=== PATIENT | male | born 1985 | race Caucasian/White ===

== ENCOUNTER 2019-10-29 22:24 | Observation (INO) | payer OTHER, SELFPAY ==
--- NOTE | ~2019-10-29 | XR_ITS ---
EXAMINATION: XR chest 2V DATE: 10/29/2019 22:53 INDICATION: Left-sided chest pain TECHNIQUE: PA and lateral views of the chest are obtained. COMPARISON: 04/16/2018 FINDINGS: The lungs are free of acute opacities. There is no pleural effusion or pneumothorax. The ca rdiomediastinal silhouette is normal. The visualized bones and soft tissues are unremarkable. IMPRESSION: 1. No acute cardiopulmonary abnormality. Reviewed, dictated and finalized at location A. ARCH PHYSICIAN
[2019-10-29 22:26] VITALS: BP 153/88; PULSE 83; RESP 20; TEMP 36.7; O2SAT 99
--- NOTE | 2019-10-29 22:30 | ECG_ITS ---
Measurements Intervals [place] Rate: 81 P: 21 NE: 147 QRS: 27 QRSD: 114 T: 18 QT: 353 QTc: 411 Interpretive Statements SINUS RHYTHM INTRAVENTRICULAR CONDUCTION DELAY BASELINE ARTIFACT- I, II, III, AVF, V1-V6 BORDERLINE ECG Electronically Signed On 10-30-2019 6:51:16 AUTO BODY MECHANIC APPRENTICE by Philip Harris D.O.
--- NOTE | 2019-10-29 22:30 | ED.CHESTPAIN ---
HPI - Chest Pain General Chief Complaint: Chest Pain Stated Complaint: chest tightness Time Seen by Provider: 10/29/19 22:28 Source: patient and RN notes reviewed Mode of arrival: ambulatory Limitations: no limitations History of Present Illness HPI narrative: Pt is a 34 y/o male who presents to the ED with c/o intermittent lt sided chest pain starting several days ago. He notes that he has had roughly 3-4 episodes of pain per day for the past several days, and states that each episode lasts for several hours at a time. Pt currently denies any SOB, nausea, vomiting, or ABD pain. He states that he has no significant cardiac PMHx. MD complaint: chest pain Onset (ago): day(s) (several) Timing of current episode: episodic Pain location: parasternal (lt parasternal region) Quality: tightness Associated symptoms: other (none) Related Data Home Medications Medication Instructions Recorded Confirmed No Home Medications 10/29/19 10/29/19 Allergies Allergy/AdvReac Type Severity Reaction Status Date / Time No Known Allergies Allergy Verified 10/29/19 22:31 Review of Systems Review of Systems: All systems reviewed & are unremarkable except as noted in HPI and below Cardiovascular: Cardiovascular: Reports chest pain (lt parasternal chest tightness) Respiratory: Respiratory: Denies dyspnea Gastrointestinal: Gastrointestinal: Denies abdominal pain, Denies nausea and Denies vomiting PMFSH Past Medical History Medical History Healthy adult male Surgical History Surgical History No significant past surgical history Social History Social History Smoking status: Never smoker Gender identity (if verbalized by the patient): Male Exam Narrative: Exam Narrative: APPEARANCE: No acute distress, nontoxic, resting in bed EYES: EOMI HEENT: Normocephalic, atraumatic, OMM RESPIRATORY: No respiratory distress Clear to auscultation bilaterally with no rhonchi wheezing or rales. CARDIOVASCULAR: Regular rate and rhythm without murmurs rubs or gallops. ABDOMINAL: Soft, nontender, nondistended, no rebound or guarding MUSCULOSKELETAl: Moves all extremities. No clubbing, cyanosis or edema. NEURO: Awake and alert. Following commands, speech normal, no focal deficits SKIN:: Warm, dry. No rashes lesions or abrasions PSYCHIATRIC: Normal affect/mood, Course Course Emergency Course: Patient notes a few episodes were minimal suggest pain on ED. No pain at this time with intermittent episodes will admit to [facility] Discussed with patient and family results of workup and diagnosis. Discussed need for admission. Patient and family understand and agree to current treatment plan Consultations Consultation #1: Discussed case with Program Research Specialist, Dr. Vieyra. Agrees with admission to [facility]. Date: 10/30/19 Time: 02: Vital Signs Vital signs: Vital Signs Temperature 98.1 F 10/29/19 22:26 Pulse Rate 83 10/29/19 22:26 Respiratory Rate 10/29/19 22:26 Blood Pressure 153/88 H 10/29/19 22:26 Pulse Oximetry 99 10/29/19 22:26 Temperature 98.1 F 10/29/19 22:26 Pulse Rate 52 L 10/30/19 02:26 Respiratory Rate 10/30/19 02:26 Blood Pressure 130/85 10/30/19 02:26 Pulse Oximetry 98 10/30/19 02:26 MDM - Chest Pain Lab Data Result diagrams: 10/29/19 22:33 10/29/19 22:33 Labs: Lab Results 10/29/19 10/29/19 10/29/19 Range/Units 22:33 22:33 22:33 WBC 8.9 (4.5-10.0) K/mm3 RBC 5.50 (4.6-6.20) M/mm3 Hgb 16.4 (14.0-18.0) g/dL Hct 48.3 (42.0-52.0) % MCV 87.8 (80-100) fl MCH 29.8 (26-34) pg MCHC 34.0 (32-36) g/dl RDW 12.1 (11.5-14.5) % Plt Count 187 (150-375) k/mm3 MPV 10.2 (7.4-10.4) fl Immature Gran % (Auto) 0.2 (0-0.5) % Neut % (Auto) 41.8 L (45.5-73.1)
[2019-10-29] MEDS: KETOROLAC 30 MG/ML VIAL (*BKC) IV PUSH (22:36)
[2019-10-29] MEDS: ASPIRIN 81 MG CHEWABLE TABLET 324 MG PO (22:36)
[2019-10-29 22:39] LABS: Basophils Absolute Auto 0.1 K/mm3 (0.0-0.1); Basophils Percent Auto 0.8 % (0.2-1.2); Eosinophils Absolute Auto 0.3 K/mm3 (0-0.3); Eosinophils Percent Auto 3.5 % (0-4.4); Hematocrit 48.3 % (42.0-52.0); Hemoglobin 16.4 g/dL (14.0-18.0); Immature Granulocyte Absolute 0.02 K/mm3 (0.00-0.031); Immature Granulocyte Percent A 0.2 % (0-0.5); Lymphocytes Percent Auto 44.1 % (18.3-44.2); Mean Corpuscular Hemoglobin 29.8 pg (26-34); Mean Corpuscular Volume 87.8 fl (80-100); Mean Platelet Volume 10.2 fl (7.4-10.4); Monocytes Absolute Auto 0.9 K/mm3 (0.1-0.6); Monocytes Percent Auto 9.6 % (2.6-8.5); Neutrophils Absolute Auto 3.7 K/mm3 (1.3-6.7); Neutrophils Percent Auto 41.8 % (45.5-73.1); Platelet Count Result 187 k/mm3 (150-375); Red Cell Distribution Width 12.1 % (11.5-14.5); White Blood Count 8.9 K/mm3 (4.5-10.0)
[2019-10-29 22:49] LABS: INR 0.9; Prothrombin Time 11.9 Seconds (11.1-14.7)
[2019-10-29 22:50] LABS: Blood Urea Nitrogen 14 mg/dL (9-20); Calcium 10.2 mg/dL (8.4-10.2); Carbon Dioxide 28 mmol/L (22-30); Chloride 97 mmol/L (98-107); Estimated Glomerular Filt Rate > 60; Glucose 91 mg/dL (75-110); Partial Thromboplastin Time 29.4 SECONDS (22.3-36.8); Potassium 3.7 mmol/L (3.4-5.0); Sodium 136 mmol/L (137-145)
[2019-10-29 23:02] LABS: Troponin I < 0.012 ng/mL (0.000-0.034)
[2019-10-29 23:34] VITALS: BP 126/72; PULSE 55; RESP 20; O2SAT 94
[2019-10-30] VITALS (9 sets, daily range): BP systolic 111–142; BP diastolic 67–87; PULSE 49–64; RESP 16–20; TEMP 36.3–36.6; O2SAT 95–100; BMI 30.1
--- NOTE | 2019-10-30 | EST_ITS ---
Patient Info Name: Kevon Santiago Age: 34 years : 1985 Gender: Male Ht: 76 in Wt: 250 lbs BSA: 2.49 m2 HR: 51 bpm BP: 111 / 71 mmHg Technical Quality: Good Exam Date: 10/30/2019 8:08 AM Exam Location: [facility] Patient Status: Outpatient Admit Date: 10/30/2019 Staff Ordering Physician: Albert Vieyra MD Account Assistant: Kimberly Vuong RDCS Attending Provider: dr nathan Exercise Technologist: Antoinette Ramey RDCS Exercise Physician: Karson Nathan MD Exam Type: CA stress echo Study Info Indications R07.89 - Other chest pain Treadmill exercise stress echocardiogram is performed. Summary 1. Negative stress echocardiogram for ischemia by wall motion analysis. Stress Echo Findings Left Ventricle Normal left venticular systolic function with no regional wall motion abnormalities noted at rest. Left ventricular systolic function is normal with an estimated ejection fraction of 55 % at rest. Left Ventricle Left ventricular Empty are normal with no regional wall motion abnormalities with an estimated ejection fraction of 55-60%. Right Ventricle Right ventricle Empty are normal. Ventricles Name Value Normal LV Fractional Shortening/Ejection Fraction 2D/MM Visually Estimated EF 55 % 52-72 Protocol: Shakeel Stress ECG Details Stage: REST Duration (min): 0 min : 46 sec Speed (mph): 0.0 Grade (%): 0 HR (bpm): 51 SBP (mmHg): 111 DBP (mmHg): 71 METS: --- Stage: REST Duration (min): 8 min : 37 sec Speed (mph): 0.0 Grade (%): 0 HR (bpm): 71 SBP (mmHg): 111 DBP (mmHg): 71 METS: --- Stage: STAGE 1 Duration (min): 1 min : 0 sec Speed (mph): 1.7 Grade (%): 10 HR (bpm): 99 SBP (mmHg): 111 DBP (mmHg): 71 METS: --- Stage: STAGE 1 Duration (min): 2 min : 0 sec Speed (mph): 1.7 Grade (%): 10 HR (bpm): 105 SBP (mmHg): 111 DBP (mmHg): 71 METS: --- Stage: STAGE 1 Duration (min): 3 min : 0 sec Speed (mph): 1.7 Grade (%): 10 HR (bpm): 104 SBP (mmHg): 160 DBP (mmHg): 80 METS: --- Stage: STAGE 2 Duration (min): 1 min : 0 sec Speed (mph): 2.5 Grade (%): 12 HR (bpm): 124 SBP (mmHg): 160 DBP (mmHg): 80 METS: --- Stage: STAGE 2 Duration (min): 2 min : 0 sec Speed (mph): 2.5 Grade (%): 12 HR (bpm): 129 SBP (mmHg): 165 DBP (mmHg): 77 METS: --- Stage: STAGE 2 Duration (min): 3 min : 0 sec Speed (mph): 2.5 Grade (%): 12 HR (bpm): 130 SBP (mmHg): 165 DBP (mmHg): 77 METS: --- Stage: STAGE 3 Duration (min): 1 min : 0 sec Speed (mph): 3.4 Grade (%): 14 HR (bpm): 155 SBP (mmHg): 174 DBP (mmHg): 74 METS: --- Stage: CHARLA
[2019-10-30 02:03] LABS: Troponin I < 0.012 ng/mL (0.000-0.034)
[2019-10-30 02:39] LABS: D Dimer 0.32 ug/mL (<0.48)
[2019-10-30 03:02] LABS: Cholesterol 207 mg/dL (0-200); HDL Direct 32 mg/dL; Triglycerides 443 mg/dL (<150)
[2019-10-30 03:13] LABS: LDL Cholesterol Direct 108 mg/dL
[2019-10-30 05:28] LABS: Troponin I < 0.012 ng/mL (0.000-0.034)
--- NOTE | 2019-10-30 06:06 | ADMIMU ---
This patient, Kevon Santiago, was admitted to IMU status, and placed in IMU Room 209-01. Patient/family oriented to hospital policies and general routines including ID bracelet, bed and alarms, visiting hours, pain management, procedures, bathroom and other care routines, personal items, smoking policy, room service/diet, and visiting hours. Valuables list has been completed. Information on how to activate the Rapid Response Team has been discussed. Patient/Family are encouraged to report perceived risks to care and to ask questions if they do not understand what they are told or what they should do.
--- NOTE | 2019-10-30 07:15 | PC.NURSE ---
RECEIVED TRANSFER OF GLASS TUBE BENDER STATUS PT, CAMRYN GLOVER FROM IMU 209 TO GLASS TUBE BENDER 6 VIA WC AT THIS TIME. AWAKE AND ALERT. REPORTS INTERMITTANT CHEST PRESSURE TO LEFT UPPER CHEST WITHOUT RADIATION. DENIES SOB, NAUSEA OR DIAPHORESIS AT THIS TIME. VSS. , ABBY, AT SIDE. MONITOR SB TO SR, 40'S TO 70'S NOTED. STRESS ECHO ORDERED FOR 0800. PT. REPORTS HAS BEEN NPO AFTER MIDNIGHT. ORIENTED TO NEW ROOM, PLAN. WILL MONITOR.
--- NOTE | 2019-10-30 07:57 | PC.NURSE ---
DOWN VIA WC TO STRESS ECHO.
--- NOTE | 2019-10-30 08:40 | PC.NURSE ---
RETURNED TO SMALL ANIMAL VETERINARIAN 6 VIA S/P STRESS ECHO.
--- NOTE | 2019-10-30 08:56 | PC.NURSE ---
DR. TRUONG HERE. LEFT VERBAL ORDERS FOR DISCHARGE HOME. PT. NOTIFIED.
--- NOTE | 2019-10-30 09:36 | PM.SD ---
Same Day Admit/Disch: HPI History of Present Illness Chief complaint: chest pain Narrative: Kevon Santiago is a 34 year old male with no significant past medical history who presented to [facility] last night complaining for chest discomfort. According to patient he experienced left-sided chest discomfort for last few days on and off. According to the ER note patient reported that he has episodes of pain are lasting several hours. He denies any shortness of breath palpitation dizziness or syncopal episode. Patient never had any cardiac problems no previous cardiac evaluation. He claims that his blood pressure is well controlled. Patient was admitted to telemetry floor for overnight observation. Patient was seen and examined, chart was reviewed, case was discussed with patient's nurse. [facility] Past Medical History Medical History Healthy adult male Surgical History Surgical History No significant past surgical history Family History Family History (Updated 10/30/19 @ 05:46 by Daly Sanchez RN) Mother ADHD Anxiety Hypertension SIOBHAN (obstructive sleep apnea) Social History Social History Smoking status: Never smoker Alcohol intake: current Drinks per week: 15 Substance use: never Substance use type: does not use Gender identity (if verbalized by the patient): Male Agree to blood products: Yes Same Day Admit/Disch: Med Pre-admit Medications Home Medications Medication Instructions Recorded Confirmed Type No Home Medications 10/29/19 10/29/19 History Exam Const: General: alert and awake; No acute distress HENMT: Head: normal to inspection and atraumatic Ears: hearing grossly normal bilaterally Face and sinus: normal facial exam Eyes: General: appearance normal, both eyes and all related structures Pupils: Equal, round and reactive pupils present EOM: EOMs intact bilaterally Neck: Neck: normal visual inspection and no JVD Chest: Chest palpation & inspection: normal inspection of the chest Resp: Effort & Inspection: normal respiratory effort and no respiratory distress Auscultation: clear to auscultation bilaterally Cardio: Jugular venous distension: no JVD Rate: regular rate Heart sounds: S1 normal heart sound present, S2 normal heart sound present and no murmurs GI: Inspection: normal to inspection GI Palp: Yes Soft to palpation, No Tenderness to palpation present (GI) and Yes No hepatosplenomegaly present Auscultation: normal bowel sounds Skin: General skin exam: normal color Neuro: Cranial nerves: Yes Equal, round and reactive pupils present Extrem: General: normal to inspection and no clubbing, cyanosis or edema DS: Data Data Completed and Pending Labs on day of discharge: Labs from last 24 hours 10/30/19 10/30/19 10/30/19 04:30 01:27 01:27 WBC RBC Hgb Hct MCV MCH MCHC RDW Plt Count MPV Immature Gran % (Auto) Neut % (Auto) Lymph % (Auto) [place] % (Auto) Eos % (Auto) Baso % (Auto) Lymph # (Auto) [place] # (Auto) Eos # (Auto) Baso # (Auto) Abs Immat Gran (auto) Absolute Neuts (auto) Absolute Nucleated RBC Nucleated RBC % PT INR APTT D-Dimer Sodium Potassium Chloride Carbon Dioxide BUN Creatinine Estim Creat Clear Calc Estimated GFR Glucose Calcium Troponin I < 0.012 < 0.012 Triglycerides 443 H Cholesterol 207 H LDL Cholesterol Direct 108 HDL Direct 32 10/29/19 10/29/19 10/29/19 22:50 22:33 22:33 WBC RBC Hgb Hct MCV MCH MCHC RDW Plt Count MPV Immature Gran % (Auto) Neut % (Auto) Lymph % (Auto) [place] % (Auto) Eos % (Auto) Baso % (Auto) Lymph # (Auto) [place] # (Auto) Eos # (Auto) Baso # (Auto)
--- NOTE | 2019-10-30 09:40 | PC.NURSE ---
DISCHARGE INSTRUCTIONS GIVEN AND REVIEWED W/ PT. ALL QUESTIONS ANSWERED. VOICED UNDERSTANDING OF SUCH. DISCHARGED HOME, OUT AMBULATORY W/ AT SIDE W/ ALL PERSONAL BELONGINGS AND DISCHARGE INSTRUCTIONS. VOICES NO C/O. NO DISTRESS NOTED.
== END 2019-10-30 09:40 | disposition home or self-care (01) ==
LOC: ANHED 10-30 02:50 → ANHIMU 10-30 05:16 → ANHCPC 10-30 07:26 → ANHIMU 11-02 08:02
PROVIDERS: Admitting Provider Specialist; Emergency Provider Emergency Medicine; Visit Provider Specialist
DX: R07.9 Chest pain, unspecified (principal)
CPT/HCPCS: 36415; 71046; 80048; 80061; 84484; 85025; 85380; 85610; 85730; 93005; 93351; 96374; 99285; A9270; G0378; G0379; J1885

== ENCOUNTER → 2022-06-10 13:55 | Outpatient (CLI) | payer BC, SELFPAY ==
--- NOTE | ~2022-06-10 | US_ITS ---
EXAMINATION: US carotid duplex BI DATE: 06/10/2022 14:16 INDICATION: Carotid artery stenosis TECHNIQUE: Grayscale, color Doppler, and pulsed Doppler images of the cervical carotid arteries were obtained. The degree of vessel stenosis is placed in one of the following categories: normal, <50%, 5 0-69%, >=70% but less than near-occlusion, near-occlusion, or total occlusion. Note that percent sten osis relative to normal distal artery lumen diameter is indirectly measured from velocity measurement s as described by Jose, et al. Radiology 2003; 229:340-346. COMPARISON: None. FINDINGS: RIGHT: The right common carotid artery (CCA) peak systolic velocity (PSV) is 145 cm/s. The right internal ca rotid artery (ICA) PSV is 98 cm/s. The right ICA end-diastolic velocity (EDV) is 9 cm/s. The right IC A/CCA PSV ratio is 0.7. Grayscale and color Doppler images demonstrate no discernible plaque or steno sis in the right ICA. The external carotid artery (ECA) PSV is 54 cm/s. There is antegrade flow in th e right vertebral artery. LEFT: The left CCA PSV is 184 cm/s. The left ICA PSV is 89 cm/s. The left ICA EDV is 24 cm/s. The left ICA/ CCA PSV ratio is 0.5. Grayscale and color Doppler images demonstrate no discernible plaque or stenosi s in the left ICA. The ECA PSV is 108 cm/s. There is antegrade flow in the left vertebral artery. IMPRESSION: 1. No evident plaque or stenosis in the right internal carotid artery. 2. No evident plaque or stenosis in the left internal carotid artery. Reviewed, dictated and finalized at location A.
== END ==
PROVIDERS: PCP Internal Medicine; Visit Provider Internal Medicine
DX: G90.01 Carotid sinus syncope (principal)
CPT/HCPCS: 93880

== ENCOUNTER 2023-12-16 18:16 | Emergency (ER) | payer OTHER, SELFPAY ==
[2023-12-16 18:28] VITALS: BP 114/63; PULSE 61; RESP 18; TEMP 36.9; O2SAT 100
--- NOTE | 2023-12-16 19:04 | ED.GENADULT ---
HPI - General Adult General Chief complaint: Eye Problems Stated complaint: Left Eye Irritation Source: patient, RN notes reviewed and old records reviewed Mode of arrival: ambulatory Limitations: no limitations History of Present Illness HPI narrative: 38-year-old male to [facility] with left eye redness and drainage since 1:00 p.m. today. Patient denies allergies, denies medications, denies past or history. Related Data Allergies Allergy/AdvReac Type Severity Reaction Status Date / Time No Known Allergies Allergy Verified 12/16/23 18:33 Review of Systems Review of Systems: All systems reviewed & are unremarkable except as noted in HPI and below Constitutional: Constitutional: Reports no additional constitutional complaints Eyes: Eyes: Reports eye discharge ( left) and Reports irritation ( left) ENT: Reports system reviewed and no additional complaints, except as documented Cardiovascular: Cardiovascular: Reports no additional cardiovascular complaints, Denies chest pain and Denies dyspnea Respiratory: Respiratory: Reports no additional respiratory complaints, Denies cough and Denies dyspnea Musculoskeletal: Musculoskeletal: Reports no additional musculoskeletal complaints Neurologic: Reports system reviewed and no additional complaints, except as documented Psychiatric: Psychiatric: Reports no additional psychiatric complaints [facility] Past Medical History Medical History (Updated 12/16/23 @ 19:13 by Carina Starks APRN) Healthy adult male Surgical History Surgical History (System 10/24/20 @ 14:10 by Darrius Brito) No significant past surgical history Family History Family History (System 10/24/20 @ 14:10 by Darrius Brito) Mother ADHD Anxiety Hypertension SIOBHAN (obstructive sleep apnea) Social History Social History (System 10/24/20 @ 14:10 by Darrius Brito) Smoking status: Never smoker Alcohol intake: current Drinks per week: 15 Substance use: never Substance use type: does not use Gender identity (if verbalized by the patient): Male Agree to blood products: Yes Comments At the time of my signature, I reviewed and agree with the nursing past medical, surgical, social, and family history. There is no relevant family history pertinent to the patient complaint. Exam Const: General: cooperative, healthy appearing, comfortable, no acute distress, alert and well nourished Nutritional Appearance: well nourished Orientation/consciousness: patient oriented x3 Limitations: no limitations HENMT: Head: normal to inspection Ears: external ears normal Face/Nose/Sinus: Normal external nose present, Normal nares present, normal facial exam, No erythema and No edema Face and sinus: normal facial exam, no erythema and no edema Mouth: Yes Normal oral and palatal mucosa present Eyes: Alignment and Position: alignment normal and position normal Periorbital: periorbital findings normal Conjunctivae: conjunctival abnormality left conjunctival injection and discharge purulent Pupils: Equal, round and reactive pupils present Neck: Neck: normal visual inspection, full ROM and no meningeal signs Lymphatic: no lymphadenopathy noted and no lymphedema noted Chest: Chest palpation & inspection: normal inspection of the chest Resp: Effort & Inspection: normal respiratory effort and able to speak in complete sentences Auscultation: clear to auscultation bilaterally Cardio: Jugular venous distension: no JVD Rate: regular rate Rhythm: regular rhythm Back/Spine/Pelvis: Cervical Spine: cervical ROM normal Skin: General skin exam: normal color, no rashes or lesions noted and turgor normal Neuro: General: patient oriented x3, gait normal, moves all extremities and no meningeal signs Speech: normal speech Gait exam (Neuro): Normal gait present Extrem: General: normal to inspection, full ROM and capillary refill normal Psych: Appearance: grossly normal and well kempt Course Course Em
== END 2023-12-16 19:15 | disposition home or self-care (01) ==
PROVIDERS: Emergency Provider Nurse Practitioner Family; PCP Internal Medicine
DX: H10.89 Other conjunctivitis (principal)
CPT/HCPCS: 99213; G0463